=== PATIENT | male | born 1975 | race Caucasian/White ===

== ENCOUNTER 2025-03-31 19:49 | Emergency (ER) | payer BC, SELFPAY ==
[2025-03-31] VITALS (13 sets, daily range): BP systolic 113–138; BP diastolic 81–90; PULSE 94–102; RESP 16–20; TEMP 36.8; O2SAT 93–100; BMI 27.5
--- NOTE | 2025-03-31 21:25 | ED.GENADULT ---
HPI - General Adult General Chief complaint: Nausea/Vomiting Stated complaint: vomiting/dizziness Time Seen by Provider: 03/31/25 21:18 History of Present Illness HPI narrative: Pt c/o diarrhea , vomiting, and gerd symptoms since yesterday. Two weeks ago, pt states he had similar episodes of vomiting for a few days. Pt concerned about dehydration. Pt states he has been on Zepbound since May and is concerned that this may be a side effect. Last dose was 12.5 mg on . Last dose zofran 1809 tonight. 49-year-old man presenting to the emergency department with concern of dehydration and stomach discomfort. Had episode of vomiting earlier today, notes that it was undigested food, and then primarily diarrhea today. Couple weeks ago had more extensive vomiting for ?a few days?. Had been in contact with primary care provider and suspect that this is less likely to be infectious and possibly medication-related mentioning in particular is up Zepbound which he started this May. Was prescribed some Zofran and did take a dose tonight. He is a little tremulous and I inquire about anxiety; significant other thinks that that might be playing a role particularly with concerns about this being related Zepbound. No sick contacts is noted. No fever measured. No hematochezia or melena mentioned. No hematemesis. Is not having so much abdominal pain but just very active noises and discomfort. Has not been able to eat much. Thirsty. Related Data Home Medications ?Medication ?Instructions ?Recorded ?Confirmed tirzepatide (weight loss) 12.5 12.5 mg subcut QWEEK 03/31/25 03/31/25 mg/0.5 mL subcutaneous pen injector (Zepbound) Allergies Allergy/AdvReac Type Severity Reaction Status Date / Time No Known Drug Allergies Allergy Verified 03/31/25 20:33 Review of Systems Status of ROS: Reports: 6 or more systems reviewed and unremarkable except as noted in History and below PFSH PFS Social History Smoking Status: Never smoker How often do you have a drink containing alcohol: never AUDIT-C Alcohol total score: 0 Non-prescribed substance use: denies use Exam Narrative: Exam Narrative: Distracted. Looks like he does does not feel very well. Staring up away from this examiner. Lips are dry. Mouth sticky. Lungs are clear. Heart is elevated rate regular rhythm. Abdomen is soft and diffusely mildly tender. Extremities are well perfused. No edema. Const: Vital Signs, click to edit/add: Vital Signs - 24 hr 03/31/25 20:25 03/31/25 21:29 Temperature 98.3 F Pulse Rate [Pulse Oximeter] 102 H 94 Respiratory Rate 16 20 Blood Pressure [Ri ght Upper Arm] 113/81 138/90 H Pulse Oximetry 98 99 Oxygen Delivery Me thod Room Air Room Air Documenting provider has reviewed patient's vital signs: yes Course Vital Signs Vital signs: Initial Vital Signs Temperature 98.3 F 03/31/25 20:25 Temperature Source Temporal Artery Scan 03/31/25 20:25 Pulse Rate 102 H 03/31/25 20:25 Respiratory Rate 16 03/31/25 20:25 Blood Pressure 113/81 03/31/25 20:25 Blood Pressure Mean 91 03/31/25 20:25 Blood Pressure Position Sitting 03/31/25 20:25 Pulse Oximetry 98 03/31/25 20:25 Oxygen Delivery Method Room Air 03/31/25 20:25 Vital Signs Temperature 98.3 F 03/31/25 20:25 Pulse Rate 102 H 03/31/25 20:25 Respiratory Rate 16 03/31/25 20:25 Blood Pressure 113/81 03/31/25 20:25 Pulse Oximetry 98 03/31/25 20:25 Oxygen Delivery Method Room Air 03/31/25 20:25 Temperature 98.3 F 03/31/25 20:25 Pulse Rate 94 03/31/25 21:29 Respiratory Rate 20 03/31/25 21:29 Blood Pressure 138/90 H 03/31/25 21:29 Pulse Oximetry 96 04/01/25 01:00 Oxygen Delivery Method Room Air 03/31/25 21:29 Medications Administered Medications: Discontinued Medications Generic Name Dose Route Start Last Admin Trade Name Freq PRN Reason Stop Dose Admin Diazepam 5 mg 03/31/25 21:39 03/31/25 21:55 Diazepam 5 Mg/Ml Inj IV 03/31/25 21:40 5 mg ONCE ONE Administration Hyoscyamine 0.25 mg 03/31/25 23:21 03/31/25 23:31 Hyoscyamine Sulfate 0.125 Mg Tab SUBLINGUAL 03/31/25 23:22 0.25 mg ONCE ONE Administration Sodium Chloride 1,000 mls @ 1,000 mls/hr 03/31/25 21:39 03/31/25 23:12 0.9 % Sodium Chloride 1000 Ml IV 03/31/25 22:38 Infused .Q1H ONE Infusion Sodium Chloride 1,000 mls @ 1,000 mls/hr 03/31/25 22:55 04/01/25 01:11 0.9 % Sodium Chloride 1000 Ml IV 03/31/25 23:54 Infused .Q1H ONE Infusion Lidocaine/Aluminum/Magnesium/Simeth 30 ml 03/31/25 23:21 03/31/25 23:31 Gi Cocktail (Visc Lido/Antacid) 30 Ml PO 03/31/25 23:22 30 ml ONCE ONE Administration Loperamide HCl 4 mg 04/01/25 00:11 04/01/25 00:14 Loperamide Hcl 2 Mg Capsule PO 04/01/25 00:12 4 mg ONCE ONE Administration Medical Decision Making MDM Narrative Medical decision making narrative: Is likely dehydrated. IV will be established. Will be receiving initial normal saline. Might be acidotic related to semaglutide and fluid losses. Check or electrolyte abnormalities. I think it is less likely that these symptoms represent infection but will check stool as well. Abdominal exam I think atypical for colitis. Generalized abdominal discomfort is reassuring in this regard. Elevated white count though might prompt imaging. I think anxiety is present here that is worsening symptoms as well. Will be treating nausea with diazepam. 10:45 p.m. on reassessment is markedly improved. With some abdominal discomfort associated with tension. No significant cramping at this point. Marco wonders about possible pancreatitis given potential side effects of a Zepbound. Will add on lipase and think might still benefit from another L fluids. Labs are reassuring. C diff negative. Considering the burning that was described was ordered for GI cocktail. Also for stomach cramping, hyoscyamine. Overall improved but still appears worn out. Does feel he can manage at home. I do not think this is infectious and so given initial dosing of loperamide. See patient discharge plan for further discussion You certainly may be having a reaction to your medication. I would discuss further with your primary care provider. Stool culture is still pending. Slow <del>exam</del> (advanced) of diet over the next 24-36 hours. Diluted juices, soup broth soups, crackers, rice, toast to start. I would take loperamide for diarrhea. This is available [id number]. I understand you still have some Zofran for nausea if necessary. Be seen otherwise for intractable diarrhea, marked increase in persistent abdominal pain, intractable vomiting, associated fever. Lab Data Lab results reviewed: Yes I reviewed the patient's lab results Labs: Lab Results 03/31/25 03/31/25 03/31/25 Range/Units 21:51 22:54 23:05 WBC 10.41 (4.50-11.00) K/uL RBC 5.48 (4.30-5.90) m/uL Hgb 15.3 (13.5-17.5) gm/dL Hct 45.5 (37.0-53.0) % MCV 83 (80-100) fL MCH 28 (26-34) pg MCHC 34 (32-36) gm/dL RDW Coeff of Rachell 12.8 (11.5-15.5) % Plt Count 182 (140-440) K/uL Neut % (Auto) 78.2 H (42.0-72.0) % Lymph % (Auto) 11.1 L (20-44) % Norman % (Auto) 7.2 (0.0-11.0) % Eos % (Auto) 3.3 (0.0-7.0) % Baso % (Auto) 0.1 (0.0-3.0) % Neut # (Auto) 8.10 H (1.7-7.0) K/uL Lymph # (Auto) 1.20 (0.90-2.90) K/uL Norman # (Auto) 0.70 (0.00-0.90) K/UL Eos # (Auto) 0.34 (0.00-0.50) K/uL Baso # (Auto) 0.01 (0.00-0.30) K/uL Abs Immat Gran (auto) 0.01 (0.00-0.30) K/uL Imm/Tot Granulo (auto) 0.1 % Sodium 138 (135-149) mmol/L Potassium 3.8 (3.6-5.1) mmol/L Chloride 109 (96-114) mmol/L Carbon Dioxide 23 (20-32) mmol/L Anion Gap 6 L (7-15) mEq/L BUN 11 (7-30) mg/dL Creatinine 0.9 (0.5-1.5) mg/dL Estimated Creat Clear 93.94 Estimated GFR 103 ml/min Glucose 103 (60-115) mg/dL Lactate 0.9 (0.5-1.9) mmol/L Calcium 8.4 (8.4-10.6) mg/dL Total Bilirubin 0.6 (0.1-1.5) mg/dL Direct Bilirubin 0.2 (0.0-0.5) mg/dL AST 18 (12-35) U/L ALT 14 (4-50) U/L Alkaline Phosphatase 55 (40-150) U/L Total Protein 6.0 (6.0-8.3) g/dL Albumin 3.4 (3.3-5.0) g/dL Lipase 125 (23-300) U/L Stl C. diff Tox B Gene Negative (Negative) Stl C. diff [id number] PRESUMPTIVE NEGATIVE (Negative) Lab Acknowledgement Test Added Discharge Plan Discharge Clinical Impression: Diarrhea, Dehydration Patient Disposition: Home w/ Parent or Adult Condition: Improved Additional Instructions: You certainly may be having a reaction to your medication. I would discuss further with your primary care provider. Stool culture is still pending. Slow exam of diet over the next 24-36 hours. Diluted juices, soup broth soups, crackers, rice, toast to start. I would take loperamide for diarrhea. This is available [id number]. I understand you still have some Zofran for nausea if necessary. Be seen otherwise for intractable diarrhea, marked increase in persistent abdominal pain, intractable vomiting, associated fever. Prescriptions: No Action Zepbound 12.5 mg/0.5 mL pen injector 12.5 mg subcut QWEEK Follow Up/Referrals: Ricardo Wilkerson MD [Primary Care Provider, [facility]] Stand Alone Forms: [facility] Info Instructions
[2025-03-31] MEDS: diazePAM 5 MG/ML inj IV (21:55)
[2025-03-31 21:59] LABS: Lactate* 0.9 mmol/L (0.5-1.9)
[2025-03-31 22:00] LABS: Hematocrit* 45.5 % (37.0-53.0); Hemoglobin* 15.3 gm/dL (13.5-17.5); Immature Granulocytes Abs Auto 0.01 K/uL (0.00-0.30); Immature Granulocytes Pct Auto 0.1 %; Mean Corpuscular HGB Conc 34 gm/dL (32-36); Mean Corpuscular Hemoglobin 28 pg (26-34); Mean Corpuscular Volume 83 fL (80-100); RDW Coefficient of Variation % 12.8 % (11.5-15.5); Red Blood Count* 5.48 m/uL (4.30-5.90); White Blood Count* 10.41 K/uL (4.50-11.00)
[2025-03-31 22:07] LABS: Lymphocytes Absolute Auto 1.20 K/uL (0.90-2.90); Slide Review Reflex No
[2025-03-31 22:45] LABS: Albumin* 3.4 g/dL (3.3-5.0); Chloride* 109 mmol/L (96-114); Potassium* 3.8 mmol/L (3.6-5.1); Sodium* 138 mmol/L (135-149)
[2025-03-31 22:48] LABS: Alanine Aminotransferase* 14 U/L (4-50); Alkaline Phosphatase* 55 U/L (40-150); Anion Gap 6 mEq/L (7-15); Aspartate Amino Transferase* 18 U/L (12-35); Bilirubin Direct* 0.2 mg/dL (0.0-0.5); Bilirubin Total* 0.6 mg/dL (0.1-1.5); Blood Urea Nitrogen* 11 mg/dL (7-30); Carbon Dioxide* 23 mmol/L (20-32); Creatinine* 0.9 mg/dL (0.5-1.5); Est. Creatinine Clearance* 93.94; Estimated Glomerular Filt Rate 103 ml/min; Total Protein* 6.0 g/dL (6.0-8.3)
[2025-03-31 22:49] LABS: Calcium* 8.4 mg/dL (8.4-10.6); Glucose* 103 mg/dL (60-115)
[2025-03-31] MEDS: HYOSCYAMINE SULFATE 0.125 MG TAB 0.25 MG SUBLINGUAL (23:31)
[2025-03-31] MEDS: GI COCKTAIL (VISC LIDO/ANTACID) 30 ML PO (23:31)
[2025-04-01] VITALS (7 sets, daily range): O2SAT 95–98
[2025-04-01 00:10] LABS: C.Difficile Negative (Negative); CDIFFEPI 027 PRESUMPTIVE NEGATIVE (Negative)
[2025-04-01] MEDS: LOPERAMIDE HCL 2 MG CAPSULE 4 MG PO (00:14)
== END 2025-04-01 01:11 | disposition home or self-care (01) ==
PROVIDERS: Emergency Provider Family Medicine; PCP Family Medicine
DX: E86.0 Dehydration (principal); Z79.85 Long-term (current) use of injectable non-insulin antidiabetic drugs
CPT/HCPCS: 36415; 80048; 80076; 83605; 83690; 85025; 87045; 87046; 87427; 87493; 96361; 96374; 99284; 99285; A9270; J3360; J7030